=== PATIENT | male | born 1960 | race Caucasian/White ===

== ENCOUNTER 2023-08-07 06:52 | Outpatient (CLI) | payer OTHER, SELFPAY ==
--- NOTE | 2023-08-07 07:15 | MR_ITS ---
[address] [address] Phone:?[phone] Fax:?[phone] Referring Physician Information: John Singletary M.D. [id number] [facility] [address] Phone:?[phone] Fax:?[phone] Patient:?Andreas Méndez D.O.B:?1960 Sex:?Male Phone:?[phone] [facility] MRN:?[id number] Exam Date:?08/07/2023 EXAM: MRI of the LEFT KNEE, without contrast CLINICAL INFORMATION: Male, 62 years old, with knee pain INDICATION: Evaluate for stress fracture or reaction of the left knee PRIOR SURGERY: None reported. PLAIN FILMS: Radiographs 07/16/2023. COMPARISONS: No prior MRIs available. TECHNICAL INFORMATION: Using a 1.5T MR scanner and a localizing surface coil: sagittals: PD, PDFS coronals: PD, T2FS axials: PD, PDFS SEDATION: None CONTRAST: None FINDINGS: Knee joint: Effusion: Small sized left knee effusion. Popliteal cyst: None. Loose bodies: None. Subcutaneous and extra-articular soft tissues: Mild prepatellar subcutaneous soft tissue edema. Ligaments: ACL: Intact ACL anteromedial and posterolateral bundles, without sprain or tear. PCL: Intact PCL, without acute or chronic injury. MCL: Mild thickening of the proximal superficial MCL may suggest residua of chronic complete sprain injury. LCL: Intact LCL, without injury. Posterolateral corner: No posterolateral corner soft tissue injury. Mild fluid and all low signal intensity body along the popliteus tendon subpopliteal fossa (axial series 4 image 26). The popliteus tendon is attached to the femoral attachment. Biceps femoris, iliotibial band, popliteofibular ligament and lateral gastrocnemius are intact. Posteromedial corner: No posteromedial corner soft tissue injury. Semimembranosus, pes anserine tendons and posterior oblique ligament are without injury, tendinopathy or bursitis. Extensor mechanism: Patellar tendon: Intact, without tendinopathy. Quadriceps tendon: Intact, without tendinopathy. Retinacula: Medial and lateral retinacula are intact. Fat pads: Mildly edematous appearance of the quadriceps fat pad. Medial compartment: Medial meniscus: No articular surface, meniscosynovial junction or root tear. No displacement, extrusion or parameniscal cyst. Medial femoral condyle: Small region of sharply marginated full-thickness chondral defect along the central weightbearing medial femoral condyle measuring approximately 0.4 x 0.8 cm (sagittal series 6 image 11, and coronal series 8 image 18). Medial tibial plateau: No chondromalacia or osteochondral abnormality. Lateral compartment: Lateral meniscus: Fraying/tearing of the apical free edge of the posterior root lateral meniscus (sagittal series 6. The posterior root and meniscofemoral ligaments are intact. Lateral femoral condyle: No chondromalacia or osteochondral abnormality. Lateral tibial plateau: No chondromalacia or osteochondral abnormality. Patellofemoral joint: Patella: Generalized grade 2 chondral thinning of the patellar articular cartilage with shallow fissuring of the mid central median ridge and lateral patellar facet. 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 Proximal tibiofibular joint: Unremarkable, without evidence of ligament sprain injury, joint effusion or adjacent marrow edema. Bones: Relatively prominent appearance of marrow edema is seen in the periphery of the medial femoral condyle with slight subchondral low signal in the region of chondral defect (coronal series 8 image 18). No well-defined fracture line. IMPRESSION: 1. Relatively prominent appearance of marrow edema in the peripheral medial femoral condyle central weightbearing surface may be reactive secondary to chondral pathology, versus superimposed stress injury. No discrete fracture line is visible at this time. 2. Small sharply marginated full-thickness chondral defect along the central weightbearing medial femoral condyle measuring 0.4 x 0.8 cm. 3. Fraying/tearing of the apical free edge of the posterior root lateral meniscus, without posterior root disruption. No medial meniscus tear. 4. Mild patellofemoral degenerative change as described above. 5. Suggested residua of chronic incomplete proximal superficial MCL sprain injury. No acute cruciate or collateral ligament pathology. 6. Small knee joint effusion. KME Electronically signed on 08/08/2023 9:45:00 AM by Barby Johnson M.D.
== END 2023-08-07 06:53 | disposition home or self-care (01) ==
LOC: MRI 06:53
PROVIDERS: PCP Orthopaedic Surgery Sports Medicine; Visit Provider Orthopaedic Surgery Sports Medicine
DX: M25.562 Pain in left knee (principal); S83.282A Other tear of lateral meniscus, current injury, left knee, initial encounter; S83.412A Sprain of medial collateral ligament of left knee, initial encounter; M25.462 Effusion, left knee
CPT/HCPCS: 73721